=== PATIENT | male | born 1960 | race Two or more races ===

== ENCOUNTER 2019-10-23 05:05 | Emergency (ER) | payer SELFPAY ==
[~2019-10-23] VITALS: Ht 193 cm; Wt 129.5 kg
[2019-10-23 06:10] LABS: ALANINE AMINOTRANSFERASE 38 U/L (12-78); ALBUMIN 3.5 g/dL (3.4-5.0); ANION GAP 5 mmol/L (5-15); CALCIUM 8.3 mg/dL (8.5-10.1); CHLORIDE 108 mmol/L (98-107)
[2019-10-23 06:15] LABS: ALKALINE PHOSPHATASE 138 U/L (45-117); BILIRUBIN,TOTAL 0.7 mg/dL (0.2-1.0); TOTAL PROTEIN 7.7 g/dL (6.4-8.2); TROPONIN I 0.021 ng/mL (0.000-0.045)
[2019-10-23 06:24] LABS: MEAN CORPUSCULAR HEMOGLOBIN 22.6 pg (27.5-34.5); MEAN CORPUSCULAR HGB CONC 30.8 g/dL (33.2-36.2); MEAN CORPUSCULAR VOLUME 73.5 fL (81-97); MEAN PLATELET VOLUME 9.5 fL (7.4-10.4); PLATELET COUNT 228 x10^3/uL (130-400); RED BLOOD COUNT 5.97 x10^6/uL (4.38-5.82); RED CELL DISTRIBUTION WIDTH 16.9 % (9.4-14.8)
--- NOTE | 2019-10-23 06:31 | NUR ---
Pt sleeping in room.
[2019-10-23 06:45] LABS: BASOPHILS # (AUTO) 0.21 x10^3/uL (0-0.1); BASOPHILS % (AUTO) 4 % (0-1); EOSINOPHILS % (AUTO) 5 % (1-7); LYMPHOCYTES # (AUTO) 1.03 x10^3/uL (1-3.4); LYMPHOCYTES % (AUTO) 17 % (22-44); MD SCAN; MONOCYTES # (AUTO) 0.72 x10^3/uL (0.2-0.8); MONOCYTES % (AUTO) 12 % (2-9); NEUTROPHILS # (AUTO) 3.83 x10^3/uL (1.8-6.8); NEUTROPHILS % (AUTO) 63 % (42-75)
--- NOTE | 2019-10-23 06:53 | NUR ---
report received from bella sanders.
[2019-10-23 08:00] VITALS: BP 139/90
--- NOTE | 2019-10-23 08:01 | NUR ---
Patient given discharge instructions and they have confirmed that they understand the instructions.
== END 2019-10-23 08:03 | disposition home or self-care (01) ==
LOC: ED 07:57
DX: I10 Essential (primary) hypertension (principal); G47.00 Insomnia, unspecified
CPT/HCPCS: 36415; 80053; 84443; 84484; 85025; 93005; 99284